=== PATIENT | male | born 1975 | race Caucasian/White ===

== ENCOUNTER 2018-03-04 14:37 | Emergency (ER) | payer BC, OTHER ==
[2018-03-04] MEDS ORDERED: Acetaminophen/HYDROcodone 325-5 MG Tab PO ONE (14:38)
[2018-03-04] MEDS ORDERED: Cyclobenzaprine 10 MG Tab PO ONE (14:38)
--- NOTE | 2018-03-04 15:10 | EDM.PDOC ---
ED HPI GENERAL MEDICAL PROBLEM - General Chief Complaint: Back Pain or Injury Stated Complaint: back pain Time Seen by Provider: 03/04/18 14:47 Source of Information: Reports: Patient, Family History Limitations: Reports: No Limitations - History of Present Illness INITIAL COMMENTS - FREE TEXT/NARRATIVE: in with c/o was surfing with a [employer] last week and landed wrong, felt a pop in his lower T-spine and upper L-spine area, has had pain since then, no head injury, no neck or upper back pain, no cp or sob, no abd pain, no nvdc, no problems voiding or having a BM, no numbness or tingling, no pain into his lower ext Duration: Day(s): (last week) Location: Reports: Back Quality: Reports: Ache Severity: Moderate Improves with: Reports: None Worsens with: Reports: Movement Context: Reports: Other (as above) Associated Symptoms: Reports: No Other Symptoms Treatments NUT TAPPER: Reports: Acetaminophen, Other (see below) (motrin) Right Lower Back Pain Score (Numeric/FACES): 8 - Related Data Allergies Allergy/AdvReac Type Severity Reaction Status Date / Time erythromycin base Allergy Cannot Verified 03/04/18 14:38 [From [facility] Remember Home Meds: Home Meds . [No Known Home Meds] 03/04/18 [History] Past Medical History - Past Health History Medical/Surgical History: Denies Medical/Surgical History - Past Surgical History Musculoskeletal Surgical History: Reports: Other (See Below) (hand and shoulder surg) Social & Family History - Family History Cardiac: Reports: Hypertension - Tobacco Use Smoking Status *Q: Current Every Day Smoker Tobacco Use Within Last Twelve Months: Smokeless Tobacco, Snuff/Dip - Alcohol Use Alcohol Use History: Yes - Recreational Drug Use Recreational Drug Use: No - Living Situation & Occupation Living situation: Reports: with Family ED ROS GENERAL - Review of Systems Review Of Systems: See Below Constitutional: Reports: No Symptoms. Denies: Fever, Chills HEENT: Reports: No Symptoms Respiratory: Reports: No Symptoms. Denies: Shortness of Breath, Cough Cardiovascular: Reports: No Symptoms. Denies: Chest Pain Endocrine: Reports: No Symptoms GI/Abdominal: Reports: No Symptoms. Denies: Abdominal Pain, Constipation, Diarrhea, Nausea, Stool Incontinence, Vomiting : Reports: No Symptoms. Denies: Dysuria, Incontinence, Pain, Urinary Retention Musculoskeletal: Reports: Back Pain, Muscle Pain. Denies: Neck Pain, Shoulder Pain Skin: Reports: No Symptoms Neurological: Reports: No Symptoms. Denies: Numbness, Tingling, Difficulty Walking, Weakness, Gait Disturbance Psychiatric: Reports: No Symptoms ED EXAM,LOWER BACK PAIN/INJURY - Physical Exam Exam: See Below Exam Limited By: No Limitations General Appearance: Alert, No Apparent Distress Head: Atraumatic, Normocephalic Neck: Normal Inspection, Supple, Non-Tender, Full Range of Motion Respiratory/Chest: No Respiratory Distress, Lungs Clear, Normal Breath Sounds, No Accessory Muscle Use, Chest Non-Tender Cardiovascular: Normal Peripheral Pulses, Regular Rate, Rhythm, No Murmur GI/Abdominal: Soft, Non-Tender, No Distention Back Exam: Normal Inspection, Full Range of Motion, Muscle Spasm. No: Decreased Range of Motion, Paraspinal Tenderness, Vertebral Tenderness Extremities: Normal Inspection, Normal Range of Motion, Non-Tender, No Pedal Edema, Normal Capillary Refill Neurological: Alert, Normal Mood/Affect, Normal Gait, Normal Reflexes, No Motor/ Sensory Deficits, Oriented x 3 DTR - Lower Extremities: 2+: Knee (R), Knee (L) Psychiatric: Normal Affect, Normal Mood Skin Exam: Warm, Dry, Intact, Normal Color, No Rash Lymphatic: No Adenopathy Course - Vital Signs Last Recorded V/S: Last Vital Signs Temp 36.5 C 03/04/18 14:38 Pulse 61 03/04/18 14:38 Resp 16 03/04/18 14:38 BP 138/88 03/04/18 14:38 Pulse Ox 96 03/04/18 14:38 - Orders/Labs/Meds Orders: Active Orders 24 hr Category Date Time Status Lumbar Spine 2 or 3V [CR] Stat Exams 03/04/18 14:51 Ordered Thoracic Spine 3V [CR] Stat Exams 03/04/18 14:51 Ordered - Radiology Interpretation Free Text/Narrative:: T-spine and L-spine, no fx or sublexation, Departure - Departure Time of Disposition: 15:20 Disposition: Home, Self-Care 01 Condition: Good Clinical Impression: Acute myofascial strain of lumbosacral region, Strain of fascia at thorax level - Discharge Information *PRESCRIPTION DRUG MONITORING PROGRAM REVIEWED*: Not Applicable *COPY OF PRESCRIPTION DRUG MONITORING REPORT IN PATIENT HAILY: Not Applicable Instructions: Muscle Strain, [id number], Lumbosacral Strain, Mid-Back Strain Additional Instructions: rest increase fluids massage to back 3-4 times a day warm moist heat off and on frequently robaxin 500mg 3 x a day for 10 days motrin 800mg every 8 hours as needed for pain follow up with your family doctor this week, call monday for an appointment time return to the ED as needed - Problem List & Annotations (1) Acute myofascial strain of lumbosacral region SNOMED Code(s): 671926867, 54047993, 751055834 Code(s): S39.012A - STRAIN OF MUSCLE, FASCIA AND TENDON OF LOWER BACK, INIT Status: Acute Priority: Medium Qualifiers: Encounter type: initial encounter Qualified Code(s): S39.012A - Strain of muscle, fascia and tendon of lower back, initial encounter (2) Strain of fascia at thorax level SNOMED Code(s): 329215033 Code(s): S29.019A - STRAIN OF MUSCLE AND TENDON OF UNSP WALL OF THORAX, INIT Status: Acute Priority: Medium - Problem List Review Problem List Initiated/Reviewed/Updated: Yes - My Orders Last 24 Hours: My Active Orders 03/04/18 14:51 Lumbar Spine 2 or 3V [CR] Stat Thoracic Spine 3V [CR] Stat - Assessment/Plan Last 24 Hours: My Active Orders 03/04/18 14:51 Lumbar Spine 2 or 3V [CR] Stat Thoracic Spine 3V [CR] Stat Plan: robaxin and motrin, f/u with pcp this week, see dc instructions
[2018-03-04] MEDS ORDERED: Take Home: Acetaminophen/HYDROcodone 325-5 MG, 2 Tab Pack PO ONE (15:16)
[2018-03-04] MEDS ORDERED: Take Home: Cyclobenzaprine 10 MG Tab, 4 Tab Pack PO ONE (15:16)
== END 2018-03-04 15:29 | disposition home or self-care (01) ==
LOC: CC.ED 14:37
DX: S39.012A Strain of muscle, fascia and tendon of lower back, initial encounter (principal); S29.019A Strain of muscle and tendon of unspecified wall of thorax, initial encounter; F17.290 Nicotine dependence, other tobacco product, uncomplicated; Z88.1 Allergy status to other antibiotic agents; X50.1XXA Overexertion from prolonged static or awkward postures, initial encounter; Y93.18 Activity, surfing, windsurfing and boogie boarding
CPT/HCPCS: 72070; 72100; 99283; A9270

== ENCOUNTER 2020-02-09 14:44 | Emergency (ER) | payer BC ==
[2020-02-09] MEDS: Orphenadrine 60 MG/2 ML Inj IM ONE (14:59)
[2020-02-09] MEDS: Ketorolac 60 MG/2 ML SDV IM ONE (15:00)
[2020-02-09] MEDS ORDERED: Ketorolac 10 MG Tab ONE (15:39)
[2020-02-09] MEDS ORDERED: Cyclobenzaprine 10 MG Tab ONE (15:39)
--- NOTE | 2020-02-09 15:43 | EDM.PDOC ---
ED HPI GENERAL MEDICAL PROBLEM - General Chief Complaint: General Stated Complaint: back pain Time Seen by Provider: 02/09/20 14:50 Source of Information: Reports: Patient History Limitations: Reports: No Limitations - History of Present Illness INITIAL COMMENTS - FREE TEXT/NARRATIVE: Pancho is a 45 year old male who presents to ER with complaints of low back pain. States was bending down to put on his sock and had immediate pain. Was unable to move without assistance of son. He denies any injury. Has not been lifting or straining or had a change in his routine. Had similar type pain 2 years ago that took a year to fully improve. He laid on the floor for about 15 minutes at home and that did seem to help ease the pain. Denies pain or weakness in to his legs. No loss of bowel or bladder control. Onset: Today, Sudden Duration: Hour(s):, Improving Location: Reports: Back Quality: Reports: Ache, Throbbing Severity: Severe Improves with: Reports: Rest Worsens with: Reports: Movement Lower Back Pain Score (Numeric/FACES): 9 - Related Data Allergies Allergy/AdvReac Type Severity Reaction Status Date / Time erythromycin base Allergy Cannot Verified 02/09/20 14:56 [From [facility] Remember Home Meds: Home Meds Cyclobenzaprine [Flexeril] 10 mg PO TID #30 tab 02/09/20 [Rx] Ketorolac [Toradol] 10 mg PO Q6H PRN #20 tab 02/09/20 [Rx] Past Medical History - Past Health History Medical/Surgical History: Denies Medical/Surgical History Respiratory History: Reports: Asthma Musculoskeletal History: Reports: Fracture, Neck Pain, Chronic Neurological History: Reports: Concussion - Past Surgical History Musculoskeletal Surgical History: Reports: Other (See Below) (hand and shoulder surg) Social & Family History - Family History Family Medical History: No Pertinent Family History Cardiac: Reports: Hypertension - Tobacco Use Tobacco Use Status *Q: Never Tobacco User Second Hand Smoke Exposure: No - Caffeine Use Caffeine Use: Reports: None - Recreational Drug Use Recreational Drug Use: No - Living Situation & Occupation Living situation: Reports: with Family ED ROS GENERAL - Review of Systems Review Of Systems: See Below Constitutional: Reports: No Symptoms HEENT: Reports: No Symptoms Respiratory: Denies: Shortness of Breath, Cough Cardiovascular: Denies: Chest Pain, Edema, Lightheadedness Endocrine: Reports: No Symptoms GI/Abdominal: Denies: Abdominal Pain, Nausea, Vomiting : Reports: No Symptoms Musculoskeletal: Reports: Back Pain Skin: Reports: No Symptoms ED EXAM, GENERAL - Physical Exam Exam: See Below Exam Limited By: No Limitations General Appearance: Alert, WD/WN, Mild Distress Ears: Normal External Exam, Normal TMs Nose: Normal Inspection, Normal Mucosa, No Blood Throat/Mouth: Normal Inspection, Normal Oropharynx Head: Normocephalic Neck: Normal Inspection, Supple, Non-Tender Respiratory/Chest: No Respiratory Distress, Lungs Clear, Normal Breath Sounds Cardiovascular: Regular Rate, Rhythm GI/Abdominal: Normal Bowel Sounds, Soft, Non-Tender Back Exam: Normal Inspection, Decreased Range of Motion, Muscle Spasm, Other (negative straight leg raise). No: Vertebral Tenderness Extremities: Normal Inspection, No Pedal Edema Neurological: Alert, Oriented Course - Vital Signs Last Recorded V/S: Last Vital Signs Temp 98.9 F 02/09/20 15:23 Pulse 67 02/09/20 15:23 Resp 16 02/09/20 15:23 BP 131/77 02/09/20 15:23 Pulse Ox 98 02/09/20 15:23 - Orders/Labs/Meds Meds: Medications Discontinued Medications Generic Name Dose Route Start Last Admin Trade Name Freq PRN Reason Stop Dose Admin Ketorolac Tromethamine 60 mg 02/09/20 14:50 02/09/20 15:00 Toradol IM 02/09/20 14:51 60 mg ONETIME ONE Administration Orphenadrine Citrate 60 mg 02/09/20 14:50 02/09/20 14:59 Norflex IM 02/09/20 14:51 60 mg ONETIME ONE Administration - Re-Assessments/Exams Free Text/Narrative Re-Assessment/Exam: 02/09/20 15:49 Is comfortable at rest. Still has pain with movement. Will discharge home on Toradol and Flexeril. May need to see physical therapy for further evaluation and treatment. Departure - Departure Time of Disposition: 15:50 Disposition: Home, Self-Care 01 Clinical Impression: Low back strain - Discharge Information *PRESCRIPTION DRUG MONITORING PROGRAM REVIEWED*: No *COPY OF PRESCRIPTION DRUG MONITORING REPORT IN PATIENT HAILY: No Instructions: Muscle Strain, [id number] Referrals: Rafael Moreno PA-C [Primary Care Provider] - Forms: ED Department Discharge Additional Instructions: 1. Rest 2. Ice frequently today, may switch to heat tomorrow 3. Flexeril 10 mg every 8 hours as needed for muscle spasms, may cause drowsiness 4. Toradol 10 mg every 6 hours for pain and inflammation 5. Consider evaluation by physical therapy or chiropractor tomorrow 6. Follow up if persisting concerns. Sepsis Event Note (ED) - Evaluation Sepsis Screening Result: No Definite Risk - Focused Exam Vital Signs: Vital Signs Temp Pulse Resp BP Pulse Ox 02/09/20 15:23 98.9 F 67 16 131/77 98
[2020-02-09] MEDS: Take Home: Cyclobenzaprine 10 MG Tab, 4 Tab Pack PO ONE (15:58)
[2020-02-09] MEDS: Take Home: Ketorolac 10 MG Tab, 4 Tab Pack PO ONE (15:58)
== END 2020-02-09 16:17 | disposition home or self-care (01) ==
LOC: CC.ED 14:44
DX: S39.012A Strain of muscle, fascia and tendon of lower back, initial encounter (principal); J45.909 Unspecified asthma, uncomplicated; Z88.1 Allergy status to other antibiotic agents; X58.XXXA Exposure to other specified factors, initial encounter
CPT/HCPCS: 96372; 99283; A9270-GY; J1885; J2360